=== PATIENT | female | born 1955 | race Caucasian/White ===

== ENCOUNTER 2018-02-18 09:14 | Day surgery (SDC) | payer OTHER ==
[2018-02-18] MEDS ORDERED: MIDAZOLAM 1 MG/ML 2 ML INJ ×2 (10:39)
[2018-02-18] MEDS ORDERED: FENTAnyl 50 MCG/ML VIAL (10:39)
== END 2018-02-18 11:09 | disposition home or self-care (01) ==
LOC: GIL 09:14
DX: Z12.11 Encounter for screening for malignant neoplasm of colon (principal); K29.50 Unspecified chronic gastritis without bleeding; K64.8 Other hemorrhoids; K57.90 Diverticulosis of intestine, part unspecified, without perforation or abscess without bleeding; K21.9 Gastro-esophageal reflux disease without esophagitis; K44.9 Diaphragmatic hernia without obstruction or gangrene
CPT/HCPCS: 43239; 88305; 88312